=== PATIENT | female | born 1995 | race Caucasian/White ===

== ENCOUNTER 2019-08-23 12:05 | Emergency (ER) | payer OTHER, SELFPAY ==
--- NOTE | ~2019-08-23 | CT_ITS ---
EXAMINATION: CT brain wo con EXAM DATE: 08/23/2019 13:11 INDICATION: Right-sided headaches at night. TECHNIQUE: Spiral CT of the head was performed without contrast. Axial, coronal and sagittal images were reviewed. The dose-length product (DLP) for this examination was 605.33 mGy-cm. The exposure w as tailored according to patient size, and iterative reconstruction (ASIR) was used as additional dos e reduction technique. Comparison is made to prior examination from 06/06/2015. FINDINGS: There is no acute intraparenchymal hemorrhage. No evidence of intraparenchymal brain mass lesion. No evidence of acute infarction. There is no mass effect or midline shift. The ventricles are normal in size. There are no extra-axial collections. There are no acute calvarial fractures. T he orbits are unremarkable. Soft tissue is unremarkable. The visualized sinuses and mastoid air lillie ls are well aerated. IMPRESSION: 1. Normal head CT examination. Reviewed, dictated and finalized at location B.
--- NOTE | 2019-08-23 12:16 | ED.GENADULT ---
HPI - General Adult General Chief complaint: Headache Stated complaint: PAGAN Time Seen by Provider: 08/23/19 12:31 Source: patient Mode of arrival: ambulatory Limitations: no limitations History of Present Illness HPI narrative: 23-year-old female patient presents to the emergency department with complaints of a right-sided headache. Patient states is intermittent and typically comes on in the evening time right around 830, patient states that the symptoms started on Friday, about 6 days ago.. Patient states it comes on very abruptly and rates her pain at the time 10 out of 10. Patient currently not complaining of any pain at this time. Patient states when the headache does come on it causes blurred vision to the right eye as well as watering to the right eye. Patient states she has tried taking [id number] aspirin, ibuprofen and Tylenol for the pain which does not help much. Patient denies any lightheadedness or dizziness. Denies any chest pain or shortness of breath. Denies any fevers or recent illness. Denies any recent stress or anxiety that she is aware of. Patient denies or breast-feeding at this time. Patient states her last menstrual cycle was 2 weeks ago. Patient states that she does have a family history of cluster migraines in the past but she denies any history herself of any migraines in the past. Patient does have history of cardiac issues and has had a cardiac ablation in 2017 and then again in 2019 with a loop recorder in place. Patient states that her last visit with her batch unit treater which was a virtual visit was in May. Patient states that she did see her primary care doctor today with complaints of the headache and states that she was directed here. Patient states that she is supposed to be seeing a human resources team member to be worked up for some autoimmune disorders but she has not yet seen her human resources team member. Related Data Home Medications Medication Instructions Recorded Confirmed prednisone 08/23/19 propranolol 08/23/19 Allergies Allergy/AdvReac Type Severity Reaction Status Date / Time No Known Allergies Allergy Verified 08/23/19 12:44 Review of Systems Review of Systems: Narrative: CONSTITUTIONAL: Denies fever, chills, or sweats. EYES: Denies visual changes, redness, or discharge. ENT: Denies rhinorrhea, congestion, sore throat, or otalgia. Positive right-sided headache x6 days intermittently CARDIOVASCULAR: Denies chest pain, palpitations, or edema. RESPIRATORY: Denies cough or dyspnea. GASTROINTESTINAL: Denies abdominal pain, nausea, vomiting, or diarrhea. GENITOURINARY: Denies dysuria or hematuria. SKIN: Denies rash or itching. MUSCULOSKELETAL: Denies back pain, joint pain, or myalgia. NEUROLOGIC: Denies headache, numbness, or weakness. PSYCHIATRIC: Denies anxiety or depression. [facility] Past Medical History Medical History (Updated 08/23/19 @ 14:26 by ROSALIE Triplett) Cardiovascular disorder History of arrhythmia, had cardiac ablation Social History Social History Gender identity (if verbalized by the patient): Female Comments At the time of my signature I agree with nursing past medical history, surgical, social, and family history. There is no relevant family history pertinent to the presenting complaint. Exam Narrative: Exam Narrative: GENERAL: Well-appearing, well-nourished, and in no acute distress. HEAD: Normocephalic, atraumatic. No tenderness noted to frontal maxillary sinuses on palpation EYES: PERRLA and EOMI. ENT: Nares clear, no rhinorrhea or epistaxis. Mucous membranes moist. Bilateral TMs are clear with no erythema or foreign bodies in the canal. Posterior pharynx no erythema, tonsil enlargement, exudates or lesions present. NECK: Supple. No lymphadenopathy CHEST: Clear to auscultation. No respiratory distress. Patient able talk in clear complete sentences. HEART: Regular rate and rhythm. No murm
[2019-08-23 12:42] VITALS: BP 128/82; PULSE 72; RESP 14; TEMP 36.4; O2SAT 100
--- NOTE | 2019-08-23 12:44 | ECG_ITS ---
Measurements Intervals [place] Rate: 62 P: 40 IN: 172 QRS: 78 QRSD: 92 T: 58 QT: 424 QTc: 432 Interpretive Statements SINUS RHYTHM NORMAL ECG Electronically Signed On 08-23-2019 14:45:28 CDT by Freddie Dunbar D.O.
[2019-08-23 13:03] LABS: Basophils Percent Auto 0.4 % (0.2-1.2); Eosinophils Percent Auto 0.5 % (0-4.4); Hematocrit 40.1 % (37.0-47.0); Hemoglobin 13.3 g/dL (12.0-15.0); Immature Granulocyte Absolute 0.01 K/mm3 (0.00-0.031); Immature Granulocyte Percent A 0.2 % (0-0.5); Lymphocytes Absolute Auto 1.54 K/mm3 (0.9-3.2); Lymphocytes Percent Auto 27.1 % (18.3-44.2); Mean Corpuscular HGB Conc 33.2 g/dl (32-36); Mean Corpuscular Hemoglobin 28.3 pg (26-34); Mean Corpuscular Volume 85.3 fl (80-100); Mean Platelet Volume 10.7 fl (7.4-10.4); Monocytes Absolute Auto 0.5 K/mm3 (0.1-0.6); Monocytes Percent Auto 9.3 % (2.6-8.5); Neutrophils Absolute Auto 3.6 K/mm3 (1.3-6.7); Neutrophils Percent Auto 62.5 % (45.5-73.1); Platelet Count Result 258 k/mm3 (150-375); Red Cell Distribution Width 12.1 % (11.5-14.5); White Blood Count 5.7 K/mm3 (4.5-10.0)
[2019-08-23 13:10] LABS: Add Urine Microscopic? NO; Appearance Urine Clear (Clear); Bilirubin Urine Negative (Negative); Blood Urine Negative (Negative); Color Urine Yellow (Yellow); Glucose Urine UA Negative (Negative); Ketones Urine Negative (Negative); Leukocyte Esterase Ur Negative LEU/UL (Negative); Nitrate Urine Negative (Negative); Protein Urine Negative (Negative); Specific Grav Ur 1.021 (1.001-1.035); Urobilinogen Urine Negative mg/dL (<2.0)
[2019-08-23 13:16] LABS: Alanine Aminotransferase 12 U/L (4-35); Albumin Level 4.6 g/dL (3.5-5.1); Alkaline Phosphatase 63 U/L (38-126); Aspartate Amino Transferase 19 U/L (14-36); Bilirubin,Total 0.6 mg/dL (0.2-1.3); Blood Urea Nitrogen 15 mg/dL (7-17); Carbon Dioxide 24 mmol/L (22-30); Chloride 106 mmol/L (98-107); Estimated CRCL calculation 101 ml/min; Estimated Glomerular Filt Rate > 60; Glucose 92 mg/dL (65-105); Potassium 4.1 mmol/L (3.4-5.0); Sodium 140 mmol/L (137-145)
[2019-08-23 13:27] LABS: Troponin I < 0.012 ng/mL (0.000-0.034)
[2019-08-23 14:09] VITALS: BP 117/78; PULSE 74; TEMP 37.1; O2SAT 98
[2019-08-23 14:55] VITALS: BP 114/76; PULSE 72; RESP 15; O2SAT 98
== END 2019-08-23 14:56 | disposition home or self-care (01) ==
PROVIDERS: Emergency Provider Nurse Practitioner Family; PCP Emergency Medicine
DX: G43.909 Migraine, unspecified, not intractable, without status migrainosus (principal); G44.009 Cluster headache syndrome, unspecified, not intractable
CPT/HCPCS: 36415; 70450; 80053; 81003; 81025; 84484; 85025; 93005; 99284

== ENCOUNTER 2020-06-16 15:24 | Emergency (ER) | payer OTHER, SELFPAY ==
--- NOTE | ~2020-06-16 | US_ITS ---
US OB <= 14 weeks fetus DATE: 06/16/2020 19:20 INDICATION: Pelvic pain and bleeding TECHNIQUE: Real-time imaging via transabdominal approach COMPARISON: None FINDINGS: The uterus measures 9.6 cm height, 6.3 cm AP and 8.5 cm transverse dimension. There is a live benitez intrauterine gestation. The gestational sac is eccentrically located anteri hilda and to the left, which might be due to fibroids or possibly prominent retroplacental bleeding. There is a 10.7 x 4.7 x 7 mm subchorionic hemorrhage superiorly. pole and yolk sac are identified. Normal amount of amniotic fluid. heart rate 167 bpm. Sunflower-rump length averages 2.57 cm, consistent with 9 weeks 2 days +/- 6 days estimated gestational a ge; HARRY 01/17/2021. There is a small approximately 1.1 x 0.5 x 0.7 mm subchorionic hemorrhage. IMPRESSION: Eccentrically positioned gestational sac which is situated to the left anteriorly; this m ay be due to uterine fibroids or possibly a large retroplacental hemorrhage. Continued sonographic fo llow-up is recommended. Small subchorionic hemorrhage is noted Estimated gestational age is 19 weeks 2 days +/- 6 days; HARRY 01/17/2021 Reviewed, dictated and finalized at Location [facility]. Reviewed, dictated and finalized at location A. IMPRESSION: Eccentrically positioned gestational sac which is situated to the l eft anteriorly; this may be due to uterine fibroids or possibly a large retropl acental hemorrhage. Continued sonographic follow-up is recommended. Small subchorionic hemorrhage is noted Estimated gestational age is 19 weeks 2 days +/- 6 days; HARRY 01/17/2021
[2020-06-16 15:35] VITALS: BP 125/75; PULSE 92; RESP 20; TEMP 36.4; O2SAT 100
[2020-06-16 20:19] VITALS: BP 106/74; PULSE 83; RESP 16; TEMP 36.2; O2SAT 99
--- NOTE | 2020-06-16 20:54 | ED.FEMALEGU ---
HPI - Female Genitourinary General Chief complaint: Vaginal Bleeding Stated complaint: ABD PAIN, 10 WEEKS Time Seen by Provider: 06/16/20 20:38 History of Present Illness HPI Narrative: 24 yo female at approximately 10 weeks gestation presents to the the ED for abdominal pain. She reports that she has had some lower abdominal cramping for the past few days. She had some light pink spotting yesterday, which has since resolved. Today the pain became worse. She was previously told that she had a small subchorionic hematoma. She had one previous first trimester miscarriage. Related Data Home Medications Medication Instructions Recorded Confirmed prednisone 08/23/19 propranolol 08/23/19 Allergies Allergy/AdvReac Type Severity Reaction Status Date / Time No Known Allergies Allergy Verified 08/23/19 12:44 Review of Systems Review of Systems: All systems reviewed & are unremarkable except as noted in HPI and below Constitutional: Constitutional: Reports no additional constitutional complaints Eyes: Eyes: Reports no additional eye complaints Cardiovascular: Cardiovascular: Denies chest pain Respiratory: Respiratory: Denies dyspnea Gastrointestinal: Gastrointestinal: Reports abdominal pain Genitourinary: Genitourinary: Reports as per HPI Musculoskeletal: Musculoskeletal: Denies back pain Neurologic: Reports system reviewed and no additional complaints, except as documented PMFSH Past Medical History Medical History Cardiovascular disorder History of arrhythmia, had cardiac ablation Social History Social History Gender identity (if verbalized by the patient): Female Exam Const: General: healthy appearing, no acute distress and alert Orientation/consciousness: patient oriented x3 HENMT: Head: normal to inspection Neck: Neck: normal visual inspection Resp: Effort & Inspection: normal respiratory effort Auscultation: clear to auscultation bilaterally, no rales, no rhonchi and no wheezes Cardio: Jugular venous distension: no JVD Rate: regular rate Rhythm: regular rhythm Heart sounds: no murmurs GI: Inspection: non-distended GI Palp: Yes Soft to palpation and No Tenderness to palpation present (GI) Skin: General skin exam: normal color Neuro: General: patient oriented x3 and moves all extremities Speech: normal speech Psych: Appearance: well kempt Mental Status: mental status grossly normal Affect: Anxious affect present Course Vital Signs Vital signs: Vital Signs Temperature 36.4 C L 06/16/20 15:35 Pulse Rate 92 06/16/20 15:35 Respiratory Rate 20 06/16/20 15:35 Blood Pressure 125/75 06/16/20 15:35 Pulse Oximetry 100 06/16/20 15:35 Temperature 36.4 C L 06/16/20 21:22 Pulse Rate 86 06/16/20 21:22 Respiratory Rate 16 06/16/20 21:22 Blood Pressure 112/78 06/16/20 21:22 Pulse Oximetry 99 06/16/20 21:22 MDM - Female Genitourinary MDM Narrative Medical decision making narrative: US shows subchorionic hematoma. This is the likely source of bleeding. Exam is benign. Normal appearing IUP on ultrasound. Case discussed with Dr. Hanks. She can follow-up with them in the next week. Blood type is O+. I confirmed this in the old EMR Differential Diagnosis Differential diagnosis: Likely urinary tract infection and other () Medical Records Attestation: I reviewed the patient's medical records. Imaging Data Radiologist's impression: ITS Impressions Ultrasound 06/16/20 19:21 IMPRESSION: Eccentrically positioned gestational sac which is situated to the left anteriorly; this may be due to uterine fibroids or possibly a large retroplacental hemorrhage. Continued sonographic follow-up is recommended. Small subchorionic hemorrhage is noted Estimated gestational age is 19 weeks 2 days +/- 6 days; HARRY
[2020-06-16 21:22] VITALS: BP 112/78; PULSE 86; RESP 16; TEMP 36.4; O2SAT 99
== END 2020-06-16 21:22 | disposition home or self-care (01) ==
PROVIDERS: Emergency Provider Emergency Medicine; PCP Emergency Medicine
DX: O46.8X1 Other antepartum hemorrhage, first trimester (principal); O99.411 Diseases of the circulatory system complicating pregnancy, first trimester; I49.9 Cardiac arrhythmia, unspecified; Z3A.09 9 weeks gestation of pregnancy
CPT/HCPCS: 76801; 99284

== ENCOUNTER 2020-07-26 17:15 | Emergency (ER) | payer OTHER, SELFPAY ==
[2020-07-26 17:30] VITALS: BP 108/64; PULSE 80; RESP 18; TEMP 36.8; O2SAT 99
[2020-07-26 17:40] LABS: Basophils Percent Auto 0.1 % (0.2-1.2); Eosinophils Percent Auto 0.3 % (0-4.4); Hematocrit 36.3 % (37.0-47.0); Hemoglobin 12.8 g/dL (12.0-15.0); Immature Granulocyte Absolute 0.02 K/mm3 (0.00-0.031); Immature Granulocyte Percent A 0.2 % (0-0.5); Lymphocytes Absolute Auto 1.49 K/mm3 (0.9-3.2); Lymphocytes Percent Auto 16.9 % (18.3-44.2); Mean Corpuscular HGB Conc 35.3 g/dl (32-36); Mean Corpuscular Hemoglobin 29.1 pg (26-34); Mean Corpuscular Volume 82.5 fl (80-100); Mean Platelet Volume 10.8 fl (7.4-10.4); Monocytes Absolute Auto 0.7 K/mm3 (0.1-0.6); Monocytes Percent Auto 7.4 % (2.6-8.5); Neutrophils Absolute Auto 6.6 K/mm3 (1.3-6.7); Neutrophils Percent Auto 75.1 % (45.5-73.1); Platelet Count Result 227 k/mm3 (150-375); Red Cell Distribution Width 11.9 % (11.5-14.5); White Blood Count 8.8 K/mm3 (4.5-10.0)
[2020-07-26 17:53] LABS: Alanine Aminotransferase 10 U/L (4-35); Albumin Level 3.9 g/dL (3.5-5.1); Alkaline Phosphatase 50 U/L (38-126); Anion Gap 8 mmol/L (8-16); Aspartate Amino Transferase 20 U/L (14-36); Bilirubin,Total 0.3 mg/dL (0.2-1.3); Blood Urea Nitrogen 8 mg/dL (7-17); Calcium 9.3 mg/dL (8.4-10.2); Carbon Dioxide 21 mmol/L (22-30); Chloride 108 mmol/L (98-107); Estimated CRCL calculation 130 ml/min; Estimated Glomerular Filt Rate > 60; Glucose 83 mg/dL (65-105); Lipase 59 U/L (23-300); Potassium 3.5 mmol/L (3.4-5.0); Sodium 137 mmol/L (137-145)
[2020-07-26 17:54] LABS: Add Urine Microscopic? YES; Appearance Urine Cloudy (Clear); Bacteria Urine Trace /hpf; Bilirubin Urine Negative (Negative); Blood Urine Negative (Negative); Color Urine Yellow (Yellow); Glucose Urine UA Negative (Negative); Ketones Urine 2+ mg/dL (Negative); Leukocyte Esterase Ur Negative LEU/UL (Negative); Mucus Urine Heavy /lpf; Nitrate Urine Negative (Negative); Protein Urine 1+ mg/dL (Negative); RBC Urine 0-2 /hpf (0-2); Specific Grav Ur 1.025 (1.001-1.035); Squamous Epithelial Cell Urine Few /hpf (Few); Urobilinogen Urine Negative mg/dL (<2.0); WBC Urine 0-3 /hpf
[2020-07-26] MEDS: DEXTROSE 5%/LACTATED RINGERS 1,000 ML 999 ML IV CONT (18:56)
[2020-07-26] MEDS: FAMOTIDINE 20 MG/2 ML VIAL IV PUSH (18:56)
[2020-07-26] MEDS: PROCHLORPERAZINE EDISYLATE 10 MG/2 ML VIAL IV PUSH (19:01)
--- NOTE | 2020-07-26 19:34 | ED.GENADULT ---
HPI - General Adult General Chief complaint: Nausea/Vomiting/Diarrhea Stated complaint: 16 weeks , vomiting Time Seen by Provider: 07/26/20 18:16 Source: patient and RN notes reviewed Mode of arrival: ambulatory Limitations: no limitations History of Present Illness HPI narrative: Patient is a 24-year-old female who presents to emergency department for evaluation of nausea and vomiting she is currently 16 weeks has been followed by her still operator batch or continuous taking antiemetics with little improvement patient has an intrauterine that has been confirmed with ultrasound patient on arrival denying any pain just notes that she has been unable to tolerate p.o. intake. Patient denies any diarrhea abdominal pain vaginal bleeding or discharge or other symptoms or concerns. On arrival she does not appear distressed or uncomfortable Related Data Home Medications Medication Instructions Recorded Confirmed magnesium oxide mg 07/26/20 pyridoxine (vitamin B6) [Vitamin 07/26/20 B-6] Allergies Allergy/AdvReac Type Severity Reaction Status Date / Time No Known Allergies Allergy Verified 07/26/20 17:33 Review of Systems Review of Systems: All systems reviewed & are unremarkable except as noted in HPI and below PMFSH Past Medical History Medical History Cardiovascular disorder History of arrhythmia, had cardiac ablation Social History Social History Gender identity (if verbalized by the patient): Female Exam Narrative: Exam Narrative: GENERAL: Well-appearing, well-nourished, and in no acute distress. HEAD: Normocephalic, atraumatic. EYES: PERRLA and EOMI. ENT: Nares clear, no rhinorrhea or epistaxis. Mucous membranes moist. CHEST: Clear to auscultation. No respiratory distress. No wheezes rales or rhonchi HEART: Regular rate and rhythm. No murmur heard. Normal peripheral pulses. ABDOMEN: Soft, nontender, nondistended EXTREMITIES: Normal range of motion. No edema. SKIN: Warm, dry, no rash. NEURO: No focal deficits. Alert and oriented x3. PSYCH: Normal mood and affect. Course Course Emergency Course: Patient at this time needs to leave she was evaluated given medication noted improvement but states she has to leave to initiate secondary with her son she is afebrile nontoxic-appearing was hydrated given medications no she will follow with her still operator batch or continuous Vital Signs Vital signs: Vital Signs Temperature 98.2 F 07/26/20 17:30 Pulse Rate 80 07/26/20 17:30 Respiratory Rate 18 07/26/20 17:30 Blood Pressure 108/64 07/26/20 17:30 Pulse Oximetry 99 07/26/20 17:30 Temperature 98.2 F 07/26/20 17:30 Pulse Rate 80 07/26/20 17:30 Respiratory Rate 18 07/26/20 17:30 Blood Pressure 108/64 07/26/20 17:30 Pulse Oximetry 99 07/26/20 17:30 Medical Decision Making MDM Narrative Medical decision making narrative: Patient without high risk changes in her blood work or imaging was hydrated given medications unfortunately had to leave due to an issue with her son notes that she will return or follow with her still operator batch or continuous Vital Signs Vital Signs: Vital Signs Temperature 98.2 F 07/26/20 17:30 Pulse Rate 80 07/26/20 17:30 Respiratory Rate 18 07/26/20 17:30 Blood Pressure 108/64 07/26/20 17:30 Pulse Oximetry 99 07/26/20 17:30 Temperature 98.2 F 07/26/20 17:30 Pulse Rate 80 07/26/20 17:30 Respiratory Rate 18 07/26/20 17:30 Blood Pressure 108/64 07/26/20 17:30 Pulse Oximetry 99 07/26/20 17:30 Lab Data Result diagrams: 07/26/20 17:34 07/26/20 17:34 Labs: Lab Results 07/26/20 07/26/20 07/26/20 Range/Units 17:34 17:34 17:41 WBC 8.8 (4.5-10.0) K/mm3 RBC 4.40 (4.2-5.4) M/mm3 Hgb 12.8 (12.0-15.0) g/dL Hct 36.3 L (37.0-47.0) % MCV 82.5 (80-100) fl MCH 29.1 (26-34) pg
== END 2020-07-26 19:49 | disposition home or self-care (01) ==
PROVIDERS: Emergency Provider Emergency Medicine; PCP Emergency Medicine
DX: O21.0 Mild hyperemesis gravidarum (principal); Z3A.16 16 weeks gestation of pregnancy
CPT/HCPCS: 36415; 80053; 81001; 83690; 85025; 96361; 96374; 96375; 99284; J0780; J7121

== ENCOUNTER 2020-09-27 10:51 | Emergency (ER) | payer OTHER, SELFPAY ==
--- NOTE | ~2020-09-27 | XR_ITS ---
EXAMINATION: XR chest 2V 09/27/2020 13:04 INDICATION: Dyspnea. Dizziness. PROCEDURE: 2 view chest COMPARISON: 06/06/2015 FINDINGS: The lungs are clear. The cardiomediastinal silhouette is within normal limits. There are no pleural effusions. There is no pneumothorax suspected. There is an implantable device overlying the left chest. IMPRESSION: 1: NO ACUTE CARDIOPULMONARY DISEASE. Reviewed, dictated and finalized at location A.
--- NOTE | ~2020-09-27 | US_ITS ---
EXAMINATION: US abdomen limited EXAM DATE: 09/27/2020 13:40 INDICATION: RUQ pain, 25 weeks. TECHNIQUE: Multiple grayscale and Doppler images of the abdomen right upper quadrant were obtained (b y a technologist who performed the scan) and subsequently reviewed. There is no prior study for heidi arita. FINDINGS: The pancreatic head and body are normal in appearance. The pancreatic tail is not visualized. The l iver has normal echogenicity and contour. There are no focal liver lesions identified. There is no evidence of intrahepatic biliary duct dilation. Portal venous flow was seen in the hepatopedal, nor mal direction and has normal Doppler waveform. No right-sided hydronephrosis. Common bile duct measures 3 mm, which is normal. The gallbladder wall is normal in thickness, with ex pected amount of distention. No sonographic evidence of pericholecystic fluid. There is no cholelit hiases. Technologist performing exam reports patient did not demonstrate sonographic Urena's sign. Please note that this sign is less reliable in patients who have received pain medication. IMPRESSION: 1. Unremarkable abdominal ultrasound exam. Reviewed, dictated and finalized at location B.
--- NOTE | 2020-09-27 10:52 | PC.NURSE ---
OB called since pt is 25 weeks . They want her seen at the ER first since she denies contractions, bleeding and is feeling baby move at this time. They can come over for monitoring if EDP requests.
[2020-09-27 11:14] VITALS: BP 111/63; PULSE 73; RESP 16; TEMP 36.4; O2SAT 99
[2020-09-27 11:35] LABS: Basophils Percent Auto 0.1 % (0.2-1.2); Eosinophils Percent Auto 0.4 % (0-4.4); Hemoglobin 12.3 g/dL (12.0-15.0); Immature Granulocyte Absolute 0.03 K/mm3 (0.00-0.031); Immature Granulocyte Percent A 0.4 % (0-0.5); Lymphocytes Absolute Auto 1.51 K/mm3 (0.9-3.2); Lymphocytes Percent Auto 19.3 % (18.3-44.2); Mean Corpuscular HGB Conc 34.2 g/dl (32-36); Mean Corpuscular Hemoglobin 28.9 pg (26-34); Mean Corpuscular Volume 84.5 fl (80-100); Mean Platelet Volume 10.5 fl (7.4-10.4); Monocytes Absolute Auto 0.6 K/mm3 (0.1-0.6); Monocytes Percent Auto 7.2 % (2.6-8.5); Neutrophils Absolute Auto 5.7 K/mm3 (1.3-6.7); Neutrophils Percent Auto 72.6 % (45.5-73.1); Platelet Count Result 277 k/mm3 (150-375); Red Blood Count 4.26 M/mm3 (4.2-5.4); Red Cell Distribution Width 12.4 % (11.5-14.5); White Blood Count 7.8 K/mm3 (4.5-10.0)
[2020-09-27 11:58] LABS: Add Urine Microscopic? YES; Appearance Urine Cloudy (Clear); Bacteria Urine Trace /hpf; Bilirubin Urine Negative (Negative); Blood Urine Negative (Negative); Color Urine Yellow (Yellow); Glucose Urine UA Negative (Negative); Ketones Urine 1+ mg/dL (Negative); Leukocyte Esterase Ur 1+ LEU/UL (Negative); Mucus Urine Rare /lpf; Nitrate Urine Negative (Negative); Protein Urine 1+ mg/dL (Negative); RBC Urine 0-2 /hpf (0-2); Specific Grav Ur 1.023 (1.001-1.035); Squamous Epithelial Cell Urine Many /hpf (Few); Urobilinogen Urine Negative mg/dL (<2.0)
--- NOTE | 2020-09-27 12:00 | ECG_ITS ---
Measurements Intervals [place] Rate: 69 P: 20 MN: 170 QRS: 49 QRSD: 91 T: 16 QT: 394 QTc: 425 Interpretive Statements SINUS RHYTHM NORMAL ECG Electronically Signed On 09-27-2020 13:05:37 CDT by Freddie Dunbar D.O.
[2020-09-27 12:01] VITALS: BP 108/69; PULSE 78; RESP 18; O2SAT 99
[2020-09-27 12:21] LABS: Alanine Aminotransferase 13 U/L (4-35); Albumin Level 3.7 g/dL (3.5-5.1); Alkaline Phosphatase 73 U/L (38-126); Anion Gap 10 mmol/L (8-16); Aspartate Amino Transferase 18 U/L (14-36); Bilirubin,Total 0.5 mg/dL (0.2-1.3); Blood Urea Nitrogen 8 mg/dL (7-17); Calcium 8.9 mg/dL (8.4-10.2); Carbon Dioxide 20 mmol/L (22-30); Chloride 105 mmol/L (98-107); Estimated CRCL calculation 130 ml/min; Estimated Glomerular Filt Rate > 60; Glucose 76 mg/dL (65-110); Lipase 67 U/L (23-300); Potassium 4.2 mmol/L (3.4-5.0); Sodium 135 mmol/L (137-145)
--- NOTE | 2020-09-27 12:56 | ED.ABDPAIN ---
HPI - Abdominal Pain General Chief Complaint: Dizziness Stated Complaint: Right flank pain, 25weeks preg Time Seen by Provider: 09/27/20 12:00 Source: patient Mode of arrival: ambulatory Limitations: no limitations History of Present Illness HPI narrative: This is a 24 year old , about 25 weeks , that presents to the ER for RUQ abdominal pain present since yesterday. Reports the pain is sharp and intermittent in nature. She called her OB Dr. Hanks and has an appointment to see him tomorrow. Reports the pain was ongoing through the night which prompted her to be seen today. Reports she was also feeling dizzy last night, like she could pass out. Reports this is not uncommon for her with her cardiac history. She has an implanted loop recorder and has had two ablations. Has history of POTS. She sees a automobile mechanic radiator at [facility]. Denies any current symptoms. Denies fever, chest pain, shortness of breath, abdominal pain, vomiting, dysuria, pelvic cramping, or vaginal bleeding. Related Data Home Medications Medication Instructions Recorded Confirmed magnesium oxide mg 07/26/20 pyridoxine (vitamin B6) [Vitamin 07/26/20 B-6] Allergies Allergy/AdvReac Type Severity Reaction Status Date / Time No Known Allergies Allergy Verified 07/26/20 17:33 Review of Systems Review of Systems: CONSTITUTIONAL: Denies fever CARDIOVASCULAR: Denies chest pain RESPIRATORY: Denies dyspnea. GASTROINTESTINAL: Reports abdominal pain. Denies nausea, vomiting GENITOURINARY: Denies dysuria All systems reviewed & are unremarkable except as noted in HPI and below PMFSH Past Medical History Medical History Cardiovascular disorder History of arrhythmia, had cardiac ablation Social History Social History (Updated 09/27/20 @ 13:02 by Mable Villalba PA-C) Smoking status: Never smoker Gender identity (if verbalized by the patient): Female Exam Narrative: Exam Narrative: GENERAL: Well-appearing, well-nourished, and in no acute distress. HEAD: Normocephalic, atraumatic. EYES: EOMI. CHEST: Clear to auscultation. No respiratory distress. No wheezes rales or rhonchi HEART: Regular rate and rhythm. No murmur heard. Normal peripheral pulses. ABDOMEN: Gravid, nontender, nondistended, normal active bowel sounds. No CVA tenderness EXTREMITIES: Normal range of motion. No edema. SKIN: Warm, dry, no rash. NEURO: No focal deficits. Alert and oriented x3. PSYCH: Normal mood and affect Course Consultations Consultation #1: Spoke with Dr. Hanks about patient and workup who will follow up in clinic tomorrow. Date: 09/27/20 Time: 15:44 Vital Signs Vital signs: Vital Signs Temperature 97.6 F 09/27/20 11:14 Pulse Rate 73 09/27/20 11:14 Respiratory Rate 16 09/27/20 11:14 Blood Pressure 111/63 09/27/20 11:14 Pulse Oximetry 99 09/27/20 11:14 Temperature 97.6 F 09/27/20 11:14 Pulse Rate 78 09/27/20 12:01 Respiratory Rate 18 09/27/20 12:01 Blood Pressure 108/69 09/27/20 12:01 Pulse Oximetry 99 09/27/20 12:01 MDM - Abdominal Pain MDM Narrative Medical decision making narrative: Patient presents the emergency department for right upper quadrant abdominal pain intermittent since last night. She is afebrile and nontoxic-appearing. CBC and metabolic panel without concerning findings. Lipase is normal. UA is 4-6 white blood cells, but also many squamous epithelial cells. Patient is not having any urinary symptoms. This will be sent for culture. Chest x-ray without acute cardiopulmonary abnormality. EKG without concerning changes. Right upper quadrant ultrasound is without acute findings. Patient reports no pain in the ED. Was hydrated and given dose of IV Tylenol. Patient is 25 weeks . Her OB is Dr. Hanks. She is feeling the baby move. Normal heart tones noted in the ED. No pelvic cramping, low back pain, or vaginal bleeding. Spoke with
[2020-09-27] MEDS: SODIUM CHLORIDE 0.9% IV 1,000 ML 999 ML IV CONT (13:35)
[2020-09-27 15:56] VITALS: BP 109/86; PULSE 76; RESP 20; O2SAT 99
== END 2020-09-27 15:57 | disposition home or self-care (01) ==
PROVIDERS: General Practice; Emergency Provider Emergency Medicine; PCP Emergency Medicine
DX: R10.11 Right upper quadrant pain (principal); O99.892 Other specified diseases and conditions complicating childbirth; Z3A.25 25 weeks gestation of pregnancy
CPT/HCPCS: 36415; 71046; 76705; 80053; 81001; 83690; 85025; 87086; 93005; 96361; 96365; 99284; J0131; J7030

== ENCOUNTER 2020-10-25 11:01 | Observation (INO) | payer OTHER, SELFPAY ==
--- NOTE | 2020-10-25 11:01 | OBADM ---
This patient, Renetta Bosch, admitted to the OB room OB Post [facility] for observation. Patient/family oriented to hospital policies and general routines including ID bracelet, bed and alarms, visiting hours, pain management, procedures, bathroom and other care routines, personal items, smoking policy, room service/diet, and visiting hours. Patient/Family are encouraged to report perceived risks to care and to ask questions if they do not understand what they are told or what they should do.
[2020-10-25 11:25] VITALS: BP 113/73; PULSE 73
[2020-10-25 11:30] VITALS: BP 116/71; PULSE 79; BMI 27.3
[2020-10-25 11:45] VITALS: BP 111/69; PULSE 78
[2020-10-25 12:00] VITALS: BP 108/63; PULSE 72
[2020-10-25 12:15] VITALS: BP 108/61; PULSE 66
--- NOTE | 2020-10-30 06:38 | P.PNOB_ITS ---
OB - Triage/Final Diagnosis Visit Information Date of evaluation: 10/27/20 Reason for evaluation: threatened labor Comments/Additional reasons for admission: I have assessed the risk for this patient, Renetta Bosch, and determined that she would benefit from ob servation care.
== END 2020-10-25 12:23 | disposition home or self-care (01) ==
PROVIDERS: Admitting Provider Obstetrics & Gynecology; PCP Emergency Medicine; Visit Provider Obstetrics & Gynecology
DX: O47.03 False labor before 37 completed weeks of gestation, third trimester (principal); Z3A.28 28 weeks gestation of pregnancy
CPT/HCPCS: G0378; G0379

== ENCOUNTER 2021-02-05 10:54 | Emergency (ER) | payer OTHER, MEDICAID, SELFPAY ==
[2021-02-05 10:56] VITALS: BP 114/82; PULSE 83; RESP 18; TEMP 37.3; O2SAT 100
== END 2021-02-05 11:18 | disposition left against medical advice (07) ==
LOC: ANHED 11:30
DX: R42 Dizziness and giddiness (principal)
CPT/HCPCS: 99199

== ENCOUNTER 2021-02-13 11:55 | Outpatient (CLI) | payer MEDICAID, SELFPAY ==
--- NOTE | ~2021-02-13 | XR_ITS ---
EXAMINATION: XR chest 2V DATE: 02/13/2021 12:14 INDICATION: COVID presenting with persistent cough TECHNIQUE: PA and lateral views of the chest were obtained. COMPARISON: Chest radiograph dated 09/27/2020 FINDINGS: The lungs remain clear with no focal airspace opacities, pulmonary edema, pleural effusion or pneumot horax. The cardiomediastinal silhouette is normal. Left pectoral implantable ekg monitor tech. Visuali zed bones and soft tissues are unremarkable. IMPRESSION: 1. No acute cardiopulmonary disease. Reviewed, dictated and finalized at location A. [employer]
== END 2021-02-13 11:56 | disposition home or self-care (01) ==
PROVIDERS: PCP Emergency Medicine; Visit Provider Emergency Medicine
DX: R05.9 Cough, unspecified (principal); U07.1 COVID-19
CPT/HCPCS: 71046

== ENCOUNTER 2021-10-12 16:39 | Outpatient (CLI) | payer OTHER, SELFPAY ==
--- NOTE | ~2021-10-12 | XR_ITS ---
XR shoulder LT min 2V 10/12/2021 16:57 INDICATION: Left shoulder pain PROCEDURE: 4 views left shoulder COMPARISON: No prior studies for comparison. FINDINGS: Fracture, dislocation or subluxation is not identified. The soft tissues appear within norm al limits. No foreign bodies are identified. IMPRESSION: 1: NO ACUTE BONE OR JOINT ABNORMALITY IDENTIFIED. Reviewed, dictated and finalized at location A.
== END 2021-10-12 16:40 | disposition home or self-care (01) ==
PROVIDERS: PCP Emergency Medicine; Visit Provider Emergency Medicine
DX: M25.512 Pain in left shoulder (principal)
CPT/HCPCS: 73030

== ENCOUNTER 2022-03-29 10:45 | Outpatient (CLI) | payer OTHER, SELFPAY ==
--- NOTE | ~2022-03-29 | XR_ITS ---
Supine and upright views of the abdomen Clinical history: Abdominal pain Findings: Bowel gas pattern is nonspecific. No evidence for obstruction or free air. No abnormal mass lesion or calcification is seen. Probable calcified phleboliths noted. Osseous structures are intact . Impression: No significant abnormality is seen. Reviewed, dictated and finalized at [facility] [place]. [facility] INTER[employer] Impression: No significant abnormality is seen.
[2022-03-29 12:50] LABS: Creatinine Urine 340.6 mg/dL
[2022-03-29 12:54] LABS: MALB Creatinine Ratio 7.5 mg/g (0-30); Microalbumin Urine Random 25.5 mg/L (0-16.7)
== END 2022-03-29 10:46 | disposition home or self-care (01) ==
LOC: ANHLAB 10:47
PROVIDERS: PCP Emergency Medicine; Visit Provider Emergency Medicine
DX: R10.9 Unspecified abdominal pain (principal); Z80.3 Family history of malignant neoplasm of breast
CPT/HCPCS: 74018; 82043

== ENCOUNTER 2022-09-16 16:14 | Outpatient (CLI) | payer OTHER, SELFPAY ==
--- NOTE | ~2022-09-16 | XR_ITS ---
Cervical Spine: AP, lateral, open-mouth views Clinical History: Pain Findings: The normal lordotic curve is maintained. The vertebral bodies and posterior elements appea r intact. The intervertebral disc spaces are well maintained. Pre-vertebral soft tissues are unremar kable. Impression: No significant abnormality is seen. Reviewed, dictated and finalized at [facility]. Impression: No significant abnormality is seen.
--- NOTE | ~2022-09-16 | XR_ITS ---
XR shoulder RT min 2V DATE: 09/16/2022 16:36 INDICATION: Right shoulder pain. Neck pain. TECHNIQUE: 4 views of right shoulder COMPARISON: 05/27/2013 right shoulder, reported normal 06/03/2013 right shoulder MR examination, reported normal FINDINGS: No fracture or dislocation, periosteal reaction or bone destruction or abnormal soft tissue calcification. Normal alignment at the acromioclavicular and glenohumeral joints. IMPRESSION: Negative Reviewed, dictated and finalized at location B. IMPRESSION: Negative
== END 2022-09-16 16:15 | disposition home or self-care (01) ==
PROVIDERS: PCP Emergency Medicine; Visit Provider Emergency Medicine
DX: M54.2 Cervicalgia (principal); M25.511 Pain in right shoulder
CPT/HCPCS: 72040; 73030

== ENCOUNTER 2022-11-13 08:00 | Outpatient (RCR) | payer OTHER, SELFPAY ==
--- NOTE | 2022-10-03 13:28 | PTOPEVAL1 ---
Assessment and note entered by Rome Madsen Evaluation Information Assessment Status Evaluation Subjective Information Pt. reports that she underwent a lymphnode biopsy on 07/30/22. She reports that shortly after she developed pain described in the neck and upper trap on the right side. She reports there is constant pain, but the intensity will fluctuate. She reports that pain is worst in the evening and first thing in the morning. She reports no problem with sleeping at night. She reports that she works from home and is at home with her 1 and 4 year old child. She reports small task such as picking up the children or pouring a glass of milk will increase her pain. She states that pain can radiate into the right shoulder blade area. She reports that her goal for therapy is to decrease her pain. Reported Pain Level Pain Score 2: Self Report Assessment PT Clinical Summary Pt. is a 26 year old female who enters the clinic with shoulder and neck pain. She presents with notable weakness, impaired ROM, impaired postural awareness and pain on this date. Continued skilled PT is indicated in order to improve these areas to allow for improved comfort with all IADL performance. Plan of Care Interventions Electrical Stimulation,Hot Pack/Cold Pack,Manual Therapy,Neuro Re-education,Therapeutic Activities, Therapeutic Exercise PT Services Indicated Yes Treatment Frequency and 2x/week x 12 visits Duration These treatments will address the objective and functional deficits as defined above. The patient will be advanced safely and appropriately in order for the patient to progress towards his/her prior level of function. Additional exercises will be introduced and as well as a comprehensive home exercise program upon discharge, if needed, ?to ensure carryover of functional gains achieved in the clinic. This treatment plan has been reviewed and agreement upon by the patient.
--- NOTE | 2022-10-03 13:29 | OPREHPOC ---
Outpatient Therapy Plan of Care This is a Multidisciplinary Plan of Care that may contain components documented by all disciplines (PT, OT, and ST.) PT Problem 1 PT Problem #1 Knowledge Deficit PT Goal 1 Goal Pt. will be independent with a HEP addressing strength and postural awareness Target Visit 2 PT Problem 2 PT Problem #2 Pain PT Goal 1 Goal Pt. will reduce pain to 2/10 at worst in a 2 week period with all IADL's and lifting activities. Target Visit 12 PT Problem 3 PT Problem #3 Impaired Range of Motion PT Goal 1 Goal Pt. will improve left cervical rotation to 75 degrees and sidebending to the left to 40 degrees AROM to improve visual field. Target Visit 12 PT Problem 4 PT Problem #4 Impaired Strength PT Goal 1 Goal Pt. will improve proximal right u.e. strength to 4plus/5 at all mm. groups. Target Visit 8 PT Goal 2 Goal Pt. will lift weight equivalent to a gallon of milk with the right u.e. without pain or compensatory shoulder movement.
--- NOTE | 2022-10-15 16:03 | PCPTNOTE ---
Pt cancelled due to a work meeting.
--- NOTE | 2022-10-17 11:51 | PCPTNOTE ---
Addendum to 10/10/22 note: Charged 3 units of exercise but accidentally noted 0 minutes for exercise time. Noting that the correct time in exercise time should have been recorded as 40 minutes and not 0 minutes.
--- NOTE | 2022-11-13 08:46 | PTOPDC ---
Assessment and note entered by Milli Luis, PT Evaluation Information Assessment Status Discharge Subjective Information does not hurt near as much as it used to; more motion in neck and shoulder; said if shoulder does not get better, want to do surgery on shoulder to extend the tendons- want to avoid any surgery; at home, problems pouring milk from a gallon jug into a cup with R arm, so use L; have to use L hand and putting youngest in car seat, agree to d/c from PT services. Reported Pain Level Pain Score Self Report Additional Pain Score Comments pain range in the past week 0-6/10; heavy, dragging feeling in shoulder blade, have to support arm and move it to get it better, sometimes sharp pain; increase pain in AM and lift arm out to the side; decrease pain: rest, ice Assessment PT Clinical Summary Renetta has received 9 PT sessions. With today's assessment: -- R shoulder active standing ROM: flexion and abduction 140' no pain, but reports labored and hard to raise up; in supine: active R shoulder flexion and abduction to 170'; --Strength: standing 5 reps: R shoulder flexion with 4# hand weight and abduction 140' with 2# hand weight. Compared to the initial evaluation: pain rating has decreased from 2-9/10 to 0-6/10; cervical ROM with rotation to L and side bend to L have increased and reports of rotation L pulls, but not painful; active shoulder flexion, abduction and ER ranges and strength have improved; but has weakness and issues with pouring gallon of milk into a cup and lifting child into car seat, but compensates by using her L arm; Continues to have tenderness over R upper traps and mid scapular- thoracic area, but not as sore with palpation; She is indep with her home exercises and motivated to continue with them to increase her strength and avoid surgery. The goals were partially met. Discharge PT services. Plan of Care PT Services Indicated No
== END 2022-11-14 13:30 | disposition home or self-care (01) ==
LOC: ANHPT 08:00
PROVIDERS: PCP Emergency Medicine
DX: M89.8X1 Other specified disorders of bone, shoulder (principal)
CPT/HCPCS: 97014; 97110; 97140; 97161; 97530; G0283

== ENCOUNTER 2023-07-28 17:52 | Outpatient (CLI) | payer OTHER, SELFPAY ==
[2023-07-28] VITALS (10 sets, daily range): BP systolic 125–140; BP diastolic 79–100; PULSE 81–99; O2SAT 97–99
== END 2023-07-28 19:00 | disposition home or self-care (01) ==
LOC: ANHOBOP 17:59 → ANHLDR 18:02
PROVIDERS: PCP Emergency Medicine; Visit Provider Obstetrics & Gynecology
DX: O13.9 Gestational [pregnancy-induced] hypertension without significant proteinuria, unspecified trimester (principal)
CPT/HCPCS: 99199

== ENCOUNTER 2023-07-29 09:25 | Inpatient (IN) | payer OTHER, SELFPAY ==
[2023-07-29] VITALS (112 sets, daily range): BP systolic 107–157; BP diastolic 65–136; PULSE 52–157; RESP 18; TEMP 36.3–36.9; O2SAT 79–100; BMI 29.3
[2023-07-29 10:28] LABS: Basophils Percent Auto 0.2 % (0.2-1.2); Eosinophils Absolute Auto 0.1 K/mm3 (0-0.3); Eosinophils Percent Auto 0.6 % (0-4.4); Hematocrit 37.8 % (37.0-47.0); Hemoglobin 12.5 g/dL (12.0-15.0); Immature Granulocyte Absolute 0.04 K/mm3 (0.00-0.031); Immature Granulocyte Percent A 0.5 % (0-0.5); Lymphocytes Absolute Auto 1.34 K/mm3 (0.9-3.2); Lymphocytes Percent Auto 15.9 % (18.3-44.2); Mean Corpuscular HGB Conc 33.1 g/dl (32-36); Mean Corpuscular Hemoglobin 27.8 pg (26-34); Mean Platelet Volume 11.9 fl (7.4-10.4); Monocytes Absolute Auto 0.6 K/mm3 (0.1-0.6); Monocytes Percent Auto 7.2 % (2.6-8.5); Neutrophils Absolute Auto 6.4 K/mm3 (1.3-6.7); Neutrophils Percent Auto 75.6 % (45.5-73.1); Platelet Count Result 257 k/mm3 (150-375); Red Cell Distribution Width 12.4 % (11.5-14.5); White Blood Count 8.4 K/mm3 (4.5-10.0)
[2023-07-29 10:32] LABS: Alanine Aminotransferase 14 U/L (6-35); Albumin Level 4.1 g/dL (3.5-5.1); Alkaline Phosphatase 172 U/L (38-126); Anion Gap 7 mmol/L (4-12); Aspartate Amino Transferase 19 U/L (14-36); Bilirubin,Total 0.5 mg/dL (0.2-1.3); Blood Urea Nitrogen 13 mg/dL (7-17); Carbon Dioxide 20 mmol/L (22-30); Chloride 109 mmol/L (98-107); Estimated Glomerular Filt Rate > 60; Glucose 83 mg/dL (65-110); Potassium 3.8 mmol/L (3.4-5.0); Sodium 136 mmol/L (137-145); Uric Acid 3.8 mg/dL (2.5-7.5)
--- NOTE | 2023-07-29 10:44 | LDADM ---
This patient, Renetta Dotson, was admitted to Labor/Delivery/Recovery 103 on 07/29/23 at 09:25. Plans for labor, pain management and were discussed with patient. Patient/family oriented to hospital policies and general routines including ID bracelet, bed and alarms, visiting hours, pain management, procedures, bathroom and other care routines, personal items, smoking policy, room service/diet and guest tray routines, security routines, and visiting hours. Patient/Family are encouraged to report perceived risks to care and to ask questions if they do not understand what they are told or what they should do. See OBIX for further documentation.
[2023-07-29 11:13] LABS: HIV 1/2 Ab P24 Ag Result Negative (Negative)
[2023-07-29] MEDS: LACTATED RINGERS 1,000 ML 125 ML IV CONT ×2 (11:17→14:22)
[2023-07-29] MEDS: OXYTOCIN 30 UNITS/NS 500 ML 30 UNITS/500 ML BAG IV CONT (11:17)
[2023-07-29 11:27] LABS: Rapid Plasma Reagin Non-Reactive (NonReactive)
--- NOTE | 2023-07-29 13:55 | WPDANESEPP ---
Anes - Eval Pre Procedure Procedure: labor epidural Date/Time: 07/29/23 13:55 Surgeon: Cristobal Preop Diagnosis: Pain during Labor Pre Op Diagnosis: Induction of Labor Patient Data Age: 27 Gender: F Height: 1.65 m Weight: 80 kg Last Vital Signs Temp 36.5 C 07/29/23 12:47 Pulse 83 07/29/23 13:45 BP 132/91 H 07/29/23 13:45 Pulse Ox 100 07/29/23 13:54 O2 Del Method Room Air 07/29/23 10:43 Allergies Allergy/AdvReac Type Severity Reaction Status Date / Time No Known Allergies Allergy Verified 07/26/20 17:33 Home Medications Medication Instructions Recorded Confirmed Type vit no.95-ferrous 1 tablet PO DAILY 07/29/23 07/29/23 History fumarate 28 mg-folic acid 800 mcg tablet () Laboratory Tests 07/29/23 09:53 WBC 8.4 K/mm3 (4.5-10.0) RBC 4.50 M/mm3 (4.2-5.4) Hgb 12.5 g/dL (12.0-15.0) Hct 37.8 % (37.0-47.0) MCV 84.0 fl (80-100) MCH 27.8 pg (26-34) MCHC 33.1 g/dl (32-36) RDW 12.4 % (11.5-14.5) Plt Count 257 k/mm3 (150-375) MPV 11.9 H fl (7.4-10.4) Immature Gran % (Auto) 0.5 % (0-0.5) Neut % (Auto) 75.6 H % (45.5-73.1) Lymph % (Auto) 15.9 L % (18.3-44.2) [place] % (Auto) 7.2 % (2.6-8.5) Eos % (Auto) 0.6 % (0-4.4) Baso % (Auto) 0.2 % (0.2-1.2) Lymph # (Auto) 1.34 K/mm3 (0.9-3.2) [place] # (Auto) 0.6 K/mm3 (0.1-0.6) Eos # (Auto) 0.1 K/mm3 (0-0.3) Baso # (Auto) 0.0 K/mm3 (0.0-0.1) Abs Immat Gran (auto) 0.04 H K/mm3 (0.00-0.031) Absolute Neuts (auto) 6.4 K/mm3 (1.3-6.7) Absolute Nucleated RBC 0.000 K/mm3 (0.0-0.012) Nucleated RBC % 0.0 % (0.0-0.2) Sodium 136 L mmol/L (137-145) Potassium 3.8 mmol/L (3.4-5.0) Chloride 109 H mmol/L (98-107) Carbon Dioxide 20 L mmol/L (22-30) Anion Gap 7 mmol/L (4-12) BUN 13 D mg/dL (7-17) Creatinine 0.50 L mg/dL (0.7-1.0) Estim Creat Clear Calc Not Reportable Estimated GFR > 60 (59 - ) Glucose 83 mg/dL (65-110) Uric Acid 3.8 mg/dL (2.5-7.5) Calcium 9.0 mg/dL (8.4-10.2) Total Bilirubin 0.5 mg/dL (0.2-1.3) AST 19 U/L (14-36) ALT 14 U/L (6-35) Alkaline Phosphatase 172 H U/L (38-126) Total Protein 7.0 g/dL (6.3-8.2) Albumin 4.1 g/dL (3.5-5.1) RPR Non-reactive (NonReactive) HIV 1&2 Ab/P24 Ag 4thGn Negative (Negative) Blood Type O Positive Antibody Screen Negative Patient hx anesthesia problems: none Family hx anesthesia problems: none Results Review: All pre-operative results and documents have been reviewed as part of the pre-operative evaluation. [facility] Past Medical History Medical History Cardiovascular disorder History of arrhythmia, had cardiac ablation Social History Social History Smoking status: Never smoker Substance use: never Do You Feel Safe in your Home?: Yes Lack of Transportation: No Lack of Food: Never True Current Housing: I Have Housing Concerned About Future Housing: No Difficulty Paying Gas/Electric Bills: No Difficulty Paying for Meds: No Currently Unemployed: No Education: Don't Know Difficulty w/ Childcare or Family Care: No Gender identity (if verbalized by the patient): Female Spiritual care concerns: No Exam Day of Procedure 07/29/23 13:55 Patient weight: normal Heart: regular rate and rhythm Lungs: normal air movement Airway: Mallampati scale class II Neurological: alert and oriented
--- NOTE | 2023-07-29 15:34 | PM.IMHP ---
H&P: HPI History of Present Illness Date/Time: 07/29/23 15:34 Chief Complaint: gestational hypertension Narrative: Patient is a 27 year old at 37w3d who presents for induction of labor indicated for gestational hypertension. She met criteria today after first elevated BP reading on 07/24 in the office. She denies hx of chronic HTN. She denies headaches, vision changes, chest pain, dyspnea, RUQ pain or epigastric pain. She reports good movement, no cramping or bleeding. is otherwise complicated by SVT, was previously on meds however stopped in under cardiology's guidance. Review of Systems Review of Systems: All systems reviewed & are unremarkable except as noted in HPI and below PMFSH Past Medical History Medical History Cardiovascular disorder History of arrhythmia, had cardiac ablation Social History Social History Smoking status: Never smoker Substance use: never Do You Feel Safe in your Home?: Yes Lack of Transportation: No Lack of Food: Never True Current Housing: I Have Housing Concerned About Future Housing: No Difficulty Paying Gas/Electric Bills: No Difficulty Paying for Meds: No Currently Unemployed: No Education: Don't Know Difficulty w/ Childcare or Family Care: No Gender identity (if verbalized by the patient): Female Spiritual care concerns: No Meds Home Medications and Allergies Home Medications Medication Instructions Recorded Confirmed Type vit no.95-ferrous 1 tablet PO DAILY 07/29/23 07/29/23 History fumarate 28 mg-folic acid 800 mcg tablet () Allergies Allergy/AdvReac Type Severity Reaction Status Date / Time No Known Allergies Allergy Verified 07/26/20 17:33 Vital Signs Vital Signs - 24 hr 07/29/23 10:43 07/29/23 10:43 07/29/23 10:45 Temperature Pulse Rate 87 98 Blood Pressure 138/92 H 135/99 H Pulse Oximetry Oxygen Delivery Room Air 07/29/23 11:00 07/29/23 11:30 07/29/23 11:45 Temperature Pulse Rate 92 89 104 H Blood Pressure 142/90 H 126/88 131/94 H Pulse Oximetry Oxygen Delivery 07/29/23 12:00 07/29/23 12:15 07/29/23 12:30 Temperature Pulse Rate 96 83 86 Blood Pressure 126/86 127/94 H 123/82 Pulse Oximetry Oxygen Delivery 07/29/23 12:47 07/29/23 13:00 07/29/23 13:04 Temperature 97.7 F Pulse Rate 93 Blood Pressure 125/82 Pulse Oximetry 100 Oxygen Delivery 07/29/23 13:09 07/29/23 13:14 07/29/23 13:15 Temperature Pulse Rate 87 Blood Pressure 128/91 H Pulse Oximetry 100 100 Oxygen Delivery 07/29/23 13:19 07/29/23 13:24 07/29/23 13:29 Temperature Pulse Rate Blood Pressure Pulse Oximetry 100 100 99 Oxygen Delivery 07/29/23 13:30 07/29/23 13:34 07/29/23 13:39 Temperature Pulse Rate 86 Blood Pressure 129/94 H Pulse Oximetry 100 99 Oxygen Delivery 07/29/23 13:44 07/29/23 13:45 07/29/23 13:49 Temperature Pulse Rate 83 Blood Pressure 132/91 H Pulse Oximetry 100 100 Oxygen Delivery 07/29/23 13:54 07/29/23 14:01 07/29/23 14:05 Temperature Pulse Rate 77 Blood Pressure 144/92 H Pulse Oximetry 100 100 Oxygen Delivery 07/29/23 14:06 07/29/23 14:07 07/29/23 14:12 Temperature Pulse Rate 82 Blood Pressure 132/88 Pulse Oximetry 100 100 100 Oxygen Delivery 07/29/23 14:13 07/29/23 14:16 07/29/23 14:17 Temperature Pulse Rate 88 94 93 Blood Pressure 135/82 135/123 H 127/81 Pulse Oximetry 100 Oxygen Delivery 07/29/23 14:19 07/29/23 14:21 07/29/23 14:22 Temperature Pulse Rate 90 83 Blood Pressure 118/81 126/82 Pulse Oximetry 100 Oxygen Delivery 07/29/23 14:20 07/29/23 14:24 07/29/23 14:27 Temperature 98.2 F Pulse Rate 88 94 Blood Pressure 133/87 125/85 Pulse Oximetry 100 Oxygen Delivery 07/29/23 14:30 07/29/23 14:32 07/29/23 14:33 Temperature Pulse Rate 86 84 Blood Pressure 118/75 123/73 Pulse Oximetry 99 Oxygen Delivery 07/29/23 14:36 07/29/23 14:37 07/29/23 14:39 Temperature Pulse Rate 88 102 H Blood Pressure 129/89 119/80 Pulse Oximetry 100 Oxygen Delivery 07/29/23 14:42 07/29/23 14:45 07/29/23 14:47 Temperature Pulse Rate 92 84 Blood Pressure 129/87 125/82 Pulse Oximetry 99 100 Oxygen Delivery 07/29/23 14:48 07/29/23 14:51 07/29/23 14:52 Temperature Pulse Rate 91 103 H Blood Pressure 128/86 127/69 Pulse Oximetry 98 Oxygen Delivery 07/29/23 14:54 07/29/23 14:57 07/29/23 15:00 Temperature 98.4 F Pulse Rate 90 86 92 Blood Pressure 133/82 139/68 157/136 H Pulse Oximetry 99 Oxygen Delivery 07/29/23 15:02 07/29/23 15:07 07/29/23 15:12 Temperature Pulse Rate 100 Blood Pressure 117/68 Pulse Oximetry 99 100 99 Oxygen Delivery 07/29/23 15:15 07/29/23 15:17 07/29/23 15:22 Temperature Pulse Rate 101 H Blood Pressure 112/70 Pulse Oximetry 98 99 Oxygen Delivery 07/29/23 15:27 07/29/23 15:30 07/29/23 15:32 Temperature Pulse Rate 93 Blood Pressure 124/69 Pulse Oximetry 100 100 Oxygen Delivery Exam Const: General: comfortable and no acute distress HENMT: Mouth: Yes moist mucous membranes Eyes: General: appearance normal, both eyes and all related structures Resp: Effort & Inspection: normal respiratory effort Cardio: Rate: regular rate Rhythm: regular rhythm : Other: 4/70/-2, AROM of clear fluid Skin: General skin exam: normal color Extrem: General: normal to inspection Psych: Mental Status: mental status grossly normal H&P: Results Labs Labs: Short CBC 07/29/23 Range/Units 09:53 WBC 8.4 (4.5-10.0) K/mm3 Hgb 12.5 (12.0-15.0) g/dL Hct 37.8 (37.0-47.0) % Plt Count 257 (150-375) k/mm3 BMP 07/29/23 09:53 Sodium 136 L Potassium 3.8 Chloride 109 H Carbon Dioxide 20 L BUN 13 D Creatinine 0.50 L Glucose 83 Calcium 9.0 Liver Function 07/29/23 Range/Units 09:53 Total Bilirubin 0.5 (0.2-1.3) mg/dL AST 19 (14-36) U/L ALT 14 (6-35) U/L Alkaline Phosphatase 172 H (38-126) U/L Albumin 4.1 (3.5-5.1) g/dL Assessment and Plan Assessment and plan (1) Gestational hypertension: Code(s): O13.9 - Gestational [-induced] hypertension without significant proteinuria, unspecified trimester Status: Acute Assessment and Plan: - asymptomatic - BP 120s-140s/70s-100s since admission - labs wnl - continue to monitor for development of preeclampsia with severe features (2) Encounter for induction of labor: Code(s): Z34.90 - Encounter for supervision of normal , unspecified, unspecified trimester Status: Acute Assessment and Plan: - AROM of clear fluid - pitocin per protocol
--- NOTE | 2023-07-29 17:50 | PM.OBPRVD ---
OB - Vaginal Delivery Note Procedure Delivery date: 07/29/23 Events: Gestational Hypertension Induction method: Per Pitocin Protocol Delivery augmentation: Rupture of Membranes Delivery monitor: External FHT and External Uterine Route of delivery: Episiotomy description: None Laceration Description: Perineal - 2nd Degree Delivery repair: vicryl Specimen: Yes Quantitative Blood Loss (ml): 50 Anesthesia type: Epidural Disposition: Floor Complications: No immediate complications Narrative: See H&P and notes for details on patient's admission and labor. She progressed to complete cervical dilation and at the appropriate time began pushing. With adequate expulsive efforts by the mother, the baby's head was delivered without difficulty. Nuchal cord was not present. The baby's right shoulder was anterior and delivered under the pubic symphysis without difficulty. The posterior shoulder and the rest of the baby delivered without difficulty. The umbilical cord was doubly clamped and cut after 90 seconds of delayed cord clamping. Care of the infant was then assumed by the nursing staff. Baby Date of : 07/29/23 Time of : 17:47 Weeks of gestation at delivery: 37 Infant gender: Male presentation: vertex position: Left Occiput Anterior Placenta delivery description: Expressed Cord Vessel Description: 3 Vessels
[2023-07-29] MEDS: OXYTOCIN 30 UNITS/NS 500 ML 30 UNITS/500 ML BAG 125 UNITS IV CONT (18:24)
[2023-07-29] MEDS: WITCH HAZEL 40 PADS 1 PAD TOPICAL (20:53)
[2023-07-29] MEDS: BENZOCAINE 20% AER SPR (*SP) 56 GM CAN 1 SPRAY TOPICAL (20:53)
--- NOTE | 2023-07-29 21:49 | OBPPTRN ---
Patient transferred to post room #283 via wheelchair. Support person present. Oriented to unit, room, information board, rooming in, admission packet and security measures. Patient verbalizes understanding.
[2023-07-29] MEDS: ACETAMINOPHEN 325 MG TABLET 650 MG PO (22:30)
[2023-07-30 00:49] VITALS: BP 121/73; PULSE 91; RESP 18; TEMP 36.2; O2SAT 98
[2023-07-30] MEDS: IBUPROFEN 600 MG TABLET PO ×2 (00:52→09:00)
[2023-07-30 04:54] VITALS: BP 118/90; PULSE 95; RESP 20; TEMP 36.9; O2SAT 98
[2023-07-30 05:06] LABS: Hematocrit 33.8 % (37.0-47.0); Hemoglobin 11.2 g/dL (12.0-15.0)
[2023-07-30 08:30] VITALS: BP 120/79; PULSE 99; RESP 18; TEMP 36.6; O2SAT 99
[2023-07-30 12:34] VITALS: BP 128/72; PULSE 100; RESP 16; TEMP 36.3; O2SAT 100
--- NOTE | 2023-07-30 15:04 | PM.OBPNVD ---
OB - PN: Subj Subjective Date/time seen: 07/30/23 15:04 Interval history: Doing well, PPD#1 Pain well controlled Bleeding minimal Tolerating regular diet Emptying bladder without issue Ready for discharge home OB - PN: Obj Data Labs 07/30/23 04:57 07/29/23 09:53 Labs: Laboratory Results - last 24 hr 07/30/23 04:57 Hgb 11.2 L Hct 33.8 L OB - PN A/P Assessment and Plan (1) Gestational hypertension: Code(s): O13.9 - Gestational [-induced] hypertension without significant proteinuria, unspecified trimester Status: Acute Assessment and Plan: - asymptomatic - BP normotensive after delivery - labs wnl Plan day: 1 Plan: routine care and discharge home Time Spent With Patient Time: Total time spent is greater than 50% in coordination of care (as documented) at patient's floor/unit and/or counseling patient: Review of Systems Review of Systems: All systems reviewed & are unremarkable except as noted in HPI and below Exam Const: General: comfortable and no acute distress HENMT: Mouth: Yes moist mucous membranes Eyes: General: appearance normal, both eyes and all related structures Resp: Effort & Inspection: normal respiratory effort Skin: General skin exam: normal color Extrem: General: normal to inspection Psych: Mental Status: mental status grossly normal
--- NOTE | 2023-07-30 15:09 | WPDANLDPN2 ---
Anes-Prog Note L&D Date/Time: 07/30/23 15:09 Comfortable throughout: labor and delivery Neuraxial method: epidural Epidural/Spinal procedure site: clean & non-tender Neuro status: Neuro function grossly intact. Cardiovascular status: normal Respiratory status: normal Airway patency: baseline Mental status: baseline Post-Op hydration status: normal Vital Signs: Last Vital Signs Temp 36.3 C L 07/30/23 12:34 Pulse 100 07/30/23 12:34 Resp 16 07/30/23 12:34 BP 128/72 07/30/23 12:34 Pulse Ox 100 07/30/23 12:34 O2 Del Method Room Air 07/29/23 10:43 Pain score (VAS): 2/10 I/O: Intake & Output 07/29/23 07/30/23 07/30/23 23:59 07:59 15:59 Output Total 130 Balance -130 Post-procedural complaints: none Patient feedback: Patient satisfied with anesthetic care.
--- NOTE | 2023-07-30 15:09 | PM.OBDSVD ---
DS: Admitting Diagnosis Discharge Date 07/30/23 Admitting Diagnosis gestational hypertension DS: Discharge Diagnosis Discharge Diagnosis (1) Gestational hypertension: Code(s): O13.9 - Gestational [-induced] hypertension without significant proteinuria, unspecified trimester Status: Acute OB - DS: Summary OB Procedures : None OB Procedures Intrapartum: Spontaneous Vag Delivery OB Procedures: : None Peripartum Data Laceration Description: Perineal - 2nd Degree Episiotomy description: None Time Spent with Patient Time attestation: Total time spent providing and/or coordinating discharge services: DS: Data Data Completed and Pending Pending studies at discharge: Pending at discharge 07/29/23 17:39 Surgical [PTH] Routine Labs on day of discharge: Labs from last 24 hours 07/30/23 04:57 Hgb 11.2 L Hct 33.8 L Discharge Plan Discharge Attending physician on discharge: Timo Jain Discharging Clinician: Timo Jain Patient Disposition: Home, Self-Care Activity: may shower and pelvic rest Diet: as tolerated Patient Instructions: Antibiotic Form Stand Alone Forms: General Discharge Information Follow-up/Referrals: Timo Jain MD [Physician] - 1 Week Discharge Medications: New ibuprofen 600 mg Tablet 600 mg PO Q6H PRN (Reason: Cramping) Qty: 30 0RF docusate sodium 100 mg Capsule 100 mg PO BID PRN (Reason: Constipation) Qty: 60 0RF Continued PNV cmb#95-ferrous fumarate-FA [] 28 mg iron- 800 mcg Tablet 1 tablet PO DAILY Date of admission: 07/29/23 09:25 Primary Care Provider: Alexis Ann Admitting Provider: Timo Jain Attending physician on admission: Timo Jain Condition: Stable
[2023-07-30 20:52] VITALS: BP 135/90; PULSE 82; RESP 18; TEMP 36.1; O2SAT 99
[2023-07-31] MEDS: IBUPROFEN 600 MG TABLET PO (03:42)
--- NOTE | 2023-07-31 08:02 | PM.OBPNVD ---
OB - PN: Subj Subjective Date/time seen: 07/31/23 08:02 Interval history: Doing well, PPD#2 Pain well controlled Bleeding minimal Tolerating regular diet Emptying bladder without issue Ready for discharge home OB - PN: Obj Data Labs 07/30/23 04:57 07/29/23 09:53 OB - PN A/P Plan day: 2 Plan: routine care and discharge home Time Spent With Patient Time: Total time spent is greater than 50% in coordination of care (as documented) at patient's floor/unit and/or counseling patient: Review of Systems Review of Systems: All systems reviewed & are unremarkable except as noted in HPI and below Exam Const: General: cooperative and healthy appearing Resp: Effort & Inspection: normal respiratory effort Cardio: Rate: regular rate Rhythm: regular rhythm Skin: General skin exam: normal color Neuro: General: patient oriented x3 Extrem: Right lower extremity: normal to inspection Left lower extremity: normal to inspection Psych: Appearance: grossly normal
--- NOTE | 2023-07-31 08:04 | P.DS_ITS ---
DS: Admitting Diagnosis Discharge Date 07/31/23 Admitting Diagnosis IOL DS: Discharge Diagnosis Discharge Diagnosis (1) Vaginal delivery: Code(s): O80 - Encounter for full-term uncomplicated delivery Status: Acute OB - DS: Summary OB Procedures : None OB Procedures Intrapartum: Spontaneous Vag Delivery OB Procedures: : None Peripartum Data Laceration Description: Perineal - 2nd Degree Episiotomy description: None Time Spent with Patient Time attestation: Total time spent providing and/or coordinating discharge services: DS: Data Data Completed and Pending Pending studies at discharge: Pending at discharge 07/29/23 17:39 Surgical [PTH] Routine Discharge Plan Discharge Attending physician on discharge: Timo Jain Discharging Clinician: Timo Jain Patient Disposition: Home, Self-Care Activity: may shower and pelvic rest Diet: as tolerated Discharge Instructions: Education: Mom and Baby Guide Given to: Mother Follow-Up: Call your delivering provider's office for an appointment to be seen in: 1 Week Mom and baby should come to the [facility] for the follow-up appointment. Appointment Date/Time: August 01, 2023 at 11:00 am What to expect at your follow-up visit: Physical Assessment Call [phone] if you are unable to keep your appointment time. BREAST CARE: * Wear a snug supportive bra. * For engorgement discomfort: Bottle Feeding: * May apply ice packs EPISIOTOMY/PERINEAL CARE: * Until bleeding stops, use your viral bottle after urinating * Change your pad frequently throughout the day * You may take sitz baths several times a day (fill your bathtub with warm water and soak for 20 minutes.) Do NOT bathe in the water * No tub baths until seen by your physician - You may shower ACTIVITY: * Rest as much as possible. * Do not exercise or lift anything heavier than your baby (such as laundry or other children.) * Avoid stairs or driving as much as possible. * Do not put anything into the vagina. No douching, tampons, or sexual activity until seen by physician. NOTIFY PHYSICIAN IF YOU HAVE ANY QUESTIONS OR IF ANY OF THE FOLLOWING SYMPTOMS OCCUR: * If your episiotomy or incision becomes red, swollen, or more painful than what you have experienced in the hospital. * If your vaginal bleeding becomes foul smelling. * If your vaginal bleeding becomes more heavy than a period or if your bleeding changes from pink to bright red. However, you may pass an occasional walnut- sized clot once or twice for the first week . * If you experience a sharp, shooting pain in you calves. * If you discover a hard, reddened area on your breast or if you experience flu-like symptoms. DIET: * Eat regular, well-balanced meals. * Drink plenty of fluids daily. If , drink to thirst. Patient Instructions: Antibiotic Form Stand Alone Forms: General Discharge Information Follow-up/Referrals: Timo Jain MD [Physician] - 1 Week Discharge Medications: New docusate sodium 100 mg Capsule 100 mg PO BID PRN (Reason: Constipation) Qty: 60 0RF ibuprofen 600 mg Tablet 600 mg PO Q6H PRN (Reason: Cramping) Qty: 30 0RF Continued PNV cmb#95-ferrous fumarate-FA [] 28 mg iron- 800 mcg Tablet 1 tablet PO DAILY Date of admission: 07/29/23 09:25 Primary Care Provider: Alexis Ann Admitting Provider: Timo Jain Attending physician on admission: Timo Jain Condition: Stable
[2023-07-31 08:50] VITALS: BP 119/81; PULSE 83; RESP 16; TEMP 37.1; O2SAT 99
[2023-08-01 11:18] VITALS: BP 123/86; PULSE 110; RESP 18; TEMP 36.8; O2SAT 99
== END 2023-07-31 08:59 | disposition home or self-care (01) | DRG 560 ==
LOC: ANHLDR 09:34 → ANHOB2 21:47
PROVIDERS: Admitting Provider Obstetrics & Gynecology; PCP Emergency Medicine; Visit Provider Obstetrics & Gynecology
DX: O13.4 Gestational [pregnancy-induced] hypertension without significant proteinuria, complicating childbirth (principal); O70.1 Second degree perineal laceration during delivery; Z3A.37 37 weeks gestation of pregnancy; Z37.0 Single live birth
CPT/HCPCS: 36415; 80053; 84550; 85014; 85018; 85025; 86592; 86703; 86850; 86900; 86901; 88307; A9270; G0432; J2590; J2795; J7120

== ENCOUNTER 2023-12-10 20:38 | Emergency (ER) | payer OTHER, SELFPAY ==
--- NOTE | ~2023-12-10 | US_ITS ---
EXAM: TRANSABDOMINAL PELVIC ULTRASOUND HISTORY: evaluation for retained products 4 months , now with bleeding. 5 para 3 COMPARISON: None. FINDINGS: UTERUS: 7.6 x 3.5 x 5.9 cm. The endometrial complex measures 2.7-3.6 mm. The endometrial complex is visualized along its course without abnormal vascularity or intervening so ft tissues appreciated. Heterogeneous vascularity is identified within the periphery of the uterus, along the anterior inferi or wall, adjacent to the bladder without spectral interrogation. RIGHT OVARY: The right ovary is unremarkable in echogenicity and size measuring 2.9 x 1.5 x 2.0 cm. Arterial and venous flow are identified. LEFT OVARY: The left ovary is unremarkable in echogenicity and size measuring 2.7 x 1.8 x 1.9 cm Both arterial and venous flow are identified. No free fluid is identified within the pelvis. IMPRESSION: No endometrial thickening, as detailed above Heterogeneous vascularity along the anterior wall of the body of the uterus for which short-term foll ow-up is recommended as the enhanced myometrial vascularity without retained products of conception m ay represent placental site involution versus uterine arteriovenous malformation (less likely without instrumentation). Reviewed, dictated and finalized at location A. IMPRESSION: No endometrial thickening, as detailed above Heterogeneous vascularity along the anterior wall of the body of the uterus for which short-term follow-up is recommended as the enhanced myometrial vasculari ty without retained products of conception may represent placental site involut ion versus uterine arteriovenous malformation (less likely without instrumentat ion).
[2023-12-10 20:50] VITALS: BP 138/82; PULSE 67; RESP 17; TEMP 36.3; O2SAT 100
[2023-12-10 20:57] LABS: Basophils Percent Auto 0.3 % (0.2-1.2); Eosinophils Absolute Auto 0.1 K/mm3 (0-0.3); Eosinophils Percent Auto 1.4 % (0-4.4); Hematocrit 37.2 % (37.0-47.0); Hemoglobin 12.6 g/dL (12.0-15.0); Immature Granulocyte Absolute 0.02 K/mm3 (0.00-0.031); Immature Granulocyte Percent A 0.3 % (0-0.5); Lymphocytes Absolute Auto 2.21 K/mm3 (0.9-3.2); Lymphocytes Percent Auto 27.8 % (18.3-44.2); Mean Corpuscular HGB Conc 33.9 g/dl (32-36); Mean Corpuscular Hemoglobin 28.3 pg (26-34); Mean Corpuscular Volume 83.4 fl (80-100); Monocytes Absolute Auto 0.6 K/mm3 (0.1-0.6); Neutrophils Percent Auto 63.2 % (45.5-73.1); Platelet Count Result 270 k/mm3 (150-375); Red Blood Count 4.46 M/mm3 (4.2-5.4); Red Cell Distribution Width 12.4 % (11.5-14.5)
[2023-12-10 21:07] LABS: Alanine Aminotransferase 13 U/L (6-35); Albumin Level 4.5 g/dL (3.5-5.1); Alkaline Phosphatase 69 U/L (38-126); Anion Gap 11 mmol/L (4-12); Aspartate Amino Transferase 19 U/L (14-36); Bilirubin,Total 0.3 mg/dL (0.2-1.3); Blood Urea Nitrogen 19 mg/dL (7-17); Calcium 9.2 mg/dL (8.4-10.2); Carbon Dioxide 22 mmol/L (22-30); Chloride 108 mmol/L (98-107); Estimated CRCL calculation 94 ml/min; Estimated Glomerular Filt Rate > 60; Glucose 107 mg/dL (65-110); Potassium 3.8 mmol/L (3.4-5.0); Sodium 141 mmol/L (137-145)
[2023-12-10 21:08] LABS: Partial Thromboplastin Time 28.1 Seconds (22.3-36.8); Prothrombin Time 13.8 Seconds (11.1-14.7)
[2023-12-10 21:24] LABS: Beta HCG Quantitative < 2.39 mIU/ML
[2023-12-10 21:52] VITALS: BP 137/95; PULSE 84; RESP 16; TEMP 36.6; O2SAT 100
--- NOTE | 2023-12-10 22:16 | ED.FEMALEGU ---
HPI - Female Genitourinary General Chief complaint: Vaginal Bleeding Stated complaint: vaginal bleeding Time Seen by Provider: 12/10/23 22:10 Source: patient Mode of arrival: ambulatory Limitations: no limitations History of Present Illness HPI Narrative: This is a 27-year-old female who is about 3 months vaginal delivery presents to the ED for chief complaint of vaginal bleeding times 48 hours. Patient reports having on of spotting since delivery but over the past 2 days the bleeding began to become heavy. Reports that she was through a tampon and less than an hour. Denies associated dizziness, lightheadedness, syncope. Denies vaginal or abdominal pain. Related Data Home Medications Medication Instructions Recorded Confirmed vit no.95-ferrous 1 tablet PO DAILY 07/29/23 07/29/23 fumarate 28 mg-folic acid 800 mcg tablet () Allergies Allergy/AdvReac Type Severity Reaction Status Date / Time No Known Allergies Allergy Verified 07/26/20 17:33 Review of Systems Review of Systems: All systems as dictated in [facility] Past Medical History Medical History Cardiovascular disorder History of arrhythmia, had cardiac ablation Social History Social History Smoking status: Never smoker Substance use: never Do You Feel Safe in your Home?: Yes Lack of Transportation: No Lack of Food: Never True Current Housing: I Have Housing Concerned About Future Housing: No Difficulty Paying Gas/Electric Bills: No Difficulty Paying for Meds: No Currently Unemployed: No Education: Don't Know Difficulty w/ Childcare or Family Care: No Gender identity (if verbalized by the patient): Female Spiritual care concerns: No Exam Narrative: GENERAL: Well-appearing, well-nourished, and in no acute distress. HEAD: Normocephalic, atraumatic. EYES: PERRLA and EOMI. ENT: Nares clear, no rhinorrhea or epistaxis. Mucous membranes moist. Oropharynx without tonsillar hypertrophy exudate or other lesions. NECK: Supple. No adenopathy or masses. CHEST: No respiratory distress. Clear to auscultation. No wheezes rales or rhonchi HEART: Regular rate and rhythm. No murmur heard. Normal peripheral pulses. ABDOMEN: Soft, nontender, nondistended, normal active bowel sounds. MSK: Normal range of motion. No edema. SKIN: Warm, dry, no rash. NEURO: Alert and oriented x4. No focal deficits. PSYCH: Normal mood and affect. Course Vital Signs Vital signs: Vital Signs Temperature 97.4 F L 12/10/23 20:50 Pulse Rate 67 12/10/23 20:50 Respiratory Rate 17 12/10/23 20:50 Blood Pressure 138/82 12/10/23 20:50 Pulse Oximetry 100 12/10/23 20:50 Oxygen Delivery Room Air 12/10/23 20:50 Temperature 98 F 12/10/23 21:52 Pulse Rate 72 12/10/23 22:42 Respiratory Rate 16 12/10/23 21:52 Blood Pressure 123/84 12/10/23 22:42 Pulse Oximetry 100 12/10/23 21:52 Oxygen Delivery Room Air 12/10/23 20:50 MDM - Female Genitourinary MDM Narrative Medical decision making narrative: This is a 27 yo female who is around 4 months who presents to the ED for chief complaint of vaginal bleeding off and on since delivery but much heavier over the past day. Vitals are normal. Exam is unremarkable overall. Lab work grossly normal. Hemoglobin and hematocrit are normal. Pelvic ultrasound: IMPRESSION: No endometrial thickening, as detailed above Heterogeneous vascularity along the anterior wall of the body of the uterus for which short-term follow-up is recommended as the enhanced myometrial vascularity without retained products of conception may represent placental site involution versus uterine arteriovenous malformation (less likely without instrumentation). Discussed the above findings the patient. We discussed that these findings could be the cause of he
[2023-12-10] MEDS: SODIUM CHLORIDE 0.9% IV 1,000 ML 999 ML IV CONT (22:21)
[2023-12-10 22:42] VITALS: BP 118/80; BP 121/76; BP 123/84; PULSE 71; PULSE 72
== END 2023-12-10 23:48 | disposition home or self-care (01) ==
PROVIDERS: Emergency Medicine; Emergency Provider Physician Assistant; PCP Emergency Medicine
DX: N93.9 Abnormal uterine and vaginal bleeding, unspecified (principal)
CPT/HCPCS: 36415; 76856; 80053; 84702; 85025; 85461; 85610; 85730; 86850; 86900; 86901; 96360; 99284; J7030

== ENCOUNTER 2024-10-10 10:44 | Emergency (ER) | payer OTHER, SELFPAY ==
--- NOTE | 2024-10-10 11:08 | ED_ITS ---
HPI - Skin/Abscess/Foreign Bdy General Chief complaint: Skin/Abscess/Foreign Body Stated complaint: poison fatou Time Seen by Provider: 10/10/24 10:45 Source: patient Mode of arrival: ambulatory Limitations: no limitations History of Present Illness HPI narrative: Patient is a 28-year-old female that presents with rash to ankle for 10 days. Patient has used calamine lotion, poison fatou cream and oat baths. Patient has allergy testing in 2 weeks and she was trying to avoid steroids but the rash is continuing to worsen. Related Data Allergies Allergy/AdvReac Type Severity Reaction Status Date / Time pineapple Allergy Intermediate Unknown Verified 10/10/24 11:34 Review of Systems Review of Systems: All systems reviewed & are unremarkable except as noted in HPI and below Constitutional: Constitutional: Denies body ache(s), Denies chills, Denies fatigue, Denies fever(s), Denies headache(s), Denies malaise and Denies weakness Eyes: Eyes: Denies blurry vision, Denies irritation and Denies loss of vision ENT: Denies otalgia, Denies headache(s), Denies nasal discharge, Denies sinus pain and Denies sore throat Cardiovascular: Cardiovascular: Denies chest pain, Denies irregular heart rhythm and Denies dyspnea Respiratory: Respiratory: Denies dyspnea Gastrointestinal: Gastrointestinal: Denies abdominal pain, Denies melena, Denies hematochezia, Denies diarrhea, Denies nausea and Denies vomiting Musculoskeletal: Musculoskeletal: Denies back pain, Denies myalgias and Denies arthralgias Integumentary/Breasts: Skin/Breast: Reports pruritus and Reports rash Neurologic: Denies headache(s), Denies loss of vision and Denies weakness Psychiatric: Psychiatric: Reports no additional psychiatric complaints Endocrine: Endocrine: Denies fatigue PMFSH Past Medical History Medical History Cardiovascular disorder History of arrhythmia, had cardiac ablation Social History Social History Smoking status: Never smoker Substance use: never Do You Feel Safe in your Home?: Yes Lack of Transportation: No Lack of Food: Never True Current Housing: I Have Housing Concerned About Future Housing: No Difficulty Paying Gas/Electric Bills: No Difficulty Paying for Meds: No Currently Unemployed: No Education: Don't Know Difficulty w/ Childcare or Family Care: No Gender identity (if verbalized by the patient): Female Spiritual care concerns: No Comments At time of signature, agree with nursing past medical, surgical, social and family history. There is no relevant family history pertinent to the presenting complaint. Exam Const: General: cooperative, healthy appearing, comfortable, no acute distress and well nourished Nutritional Appearance: well nourished Orientation/consciousness: patient oriented x3 Limitations: no limitations HENMT: Head: normal to inspection, normocephalic and atraumatic Ears: hearing grossly normal bilaterally and external ears normal Face/Nose/Sinus: Normal external nose present, normal facial exam and face symmetric Face and sinus: normal facial exam and face symmetric Mouth: Yes lip normal Eyes: General: appearance normal, both eyes and all related structures Alignment and Position: alignment normal and position normal Periorbital: periorbital findings normal Eyelids: eyelids normal Pupils: Equal, round and reactive pupils present EOM: EOMs intact bilaterally Neck: Neck: normal visual inspection, full ROM and supple Chest: Chest palpation & inspection: normal inspection of the chest Resp: Effort & Inspection: normal respiratory effort and able to speak in complete sentences Auscultation: clear to auscultation bilaterally Cardio: Rate: regular rate Rhythm: regular rhythm Heart sounds: S1 normal heart sound present and S2 normal heart sound present GI: Inspection: normal to inspection Skin: General skin exam: normal color Rashes: rashes noted (group on abdomen and bilateral arms) papules bilateral ankle arrangement grouped, borders sharp and irregular, color with an erythematous base, morphology round and lantigua rface warm, waxy, wet and with an erythematous base Neuro: General: patient oriented x3 and moves all extremities Cranial nerves: Yes Equal, round and reactive pupils present Speech: normal speech Gait exam (Neuro): Normal gait present Extrem: General: normal to inspection, full ROM and no edema Psych: Appearance: grossly normal and well kempt Mental Status: mental status grossly normal Speech and movement: Normal speech and movement present Affect: normal affect Attitude: cooperative Thought process: Normal thought process present Course Course Emergency Course: Patient is aware of diagnosis, understands and agrees to treatment plan. Anticipatory guidance given. Patient agrees to follow-up as directed and is aware of reasons to seek care at the emergency department. Portions of this record may have been created with voice recognition software Level of Care: Express Care Visit Vital Signs Vital signs: Reviewed MDM - Skin/Abscess/Foreign Bdy MDM Narrative Medical decision making narrative: Pt well hydrated appearing, in no respiratory distress, hemodynamically stable. Recommend supportive care. The patient is stable at time of discharge the clinical impression was discussed and the patient was given the opportunity to ask questions, which were addressed as completely as possible given the information available at present. Anticipatory guidance and return to care precautions were discussed and the importance of primary care follow-up was stressed and encouraged. The patient voiced understanding of the plan, indications to return, and the need for follow-up. Exam findings show no acute concerns or changes Patient is appropriate for outpatient treatment and follow-up. Differential Diagnosis Differential diagnosis: Likely viral exanthem, urticaria, cellulitis, eczema, insect bites and contact dermatitis (Poison fatou) Medical Records Attestation: I reviewed the patient's medical records. Discharge Plan Discharge Clinical Impression: Poison fatou dermatitis Patient Disposition: Home Condition: Stable Instructions: Poison Fatou (ED) Additional Instructions: Take steroids in the morning with food Prevention is always better than treatment. Learn to identify poison fatou, oak, and sumac and avoid it. Wear long sleeves, long pants, shoes, and socks. If you touched the plant, try to keep your hands away from your eyes, mouth, and face. Wash the skin thoroughly with soap and cool water as soon as possible. Scrub under the fingernails with a brush to prevent spreading of the resin to other parts of the body by touching or scratching. Remember to wash any clothing with soap and hot water as the resin can persist for many months and cause further dermatitis. You should NOT use antihistamine creams or lotions, anesthetic creams containing benzocaine, or antibiotic creams containing neomycin or bacitracin to the skin. These creams or ointments could make the rash worse. For some people, adding oatmeal to a bath, applying cool wet compresses, and applying calamine lotion may help to relieve itching. Once the blisters begin weeping fluid, astringents containing aluminum acetate (Burow's solution) and Domeboro may help to relieve the rash. IF symptoms get worse to follow up with your primary care provider or seek ER visit if you developing difficulty breathing, weakness, dizziness. Patient Language: Polish Prescriptions: New prednisone 10 mg tablet See Rx Instructions .ROUTE .COMPLEX Qty: 35 0RF Rx Instructions: 40 mg daily for 5 days, 20 mg daily for 5 days, 10 mg daily for 5 days Follow-up/Referrals: Alexis Ann MD [Primary Care Provider] - 3 Days Time of Disposition: 12:10
[2024-10-10 11:15] VITALS: BP 117/79; PULSE 79; RESP 16; TEMP 36.1; O2SAT 100
== END 2024-10-10 12:11 | disposition home or self-care (01) ==
PROVIDERS: Emergency Provider Nurse Practitioner Family; PCP Emergency Medicine
DX: L23.7 Allergic contact dermatitis due to plants, except food (principal)
CPT/HCPCS: 99213; G0463